=== PATIENT | female | born 1980 | race Hispanic/Latino ===

== ENCOUNTER 2023-10-14 10:57 | Emergency (ER) | payer SELFPAY | END 2023-10-14 12:00 | disposition home or self-care (01) | LOC: CSHERS 10:57 | DX: H91.91 Unspecified hearing loss, right ear (principal); F17.290 Nicotine dependence, other tobacco product, uncomplicated | CPT/HCPCS: 99283 ==

== ENCOUNTER 2023-11-14 18:18 | Emergency (ER) | payer SELFPAY ==
[2023-11-14] MEDS ORDERED: Lidocaine 1% (PF) 30 ML VIAL ONE (18:41)
== END 2023-11-14 19:54 | disposition home or self-care (01) ==
LOC: CSHERS 18:18
DX: S61.211A Laceration without foreign body of left index finger without damage to nail, initial encounter (principal); F17.290 Nicotine dependence, other tobacco product, uncomplicated; W26.9XXA Contact with unspecified sharp object(s), initial encounter; Y92.511 Restaurant or cafe as the place of occurrence of the external cause
CPT/HCPCS: 12001; 99282; J2001

== ENCOUNTER 2024-11-19 16:19 | Emergency (ER) | payer SELFPAY ==
[2024-11-19] MEDS ORDERED: Ibuprofen 200 MG TAB ONE (16:59)
[2024-11-19] MEDS ORDERED: Acetaminophen 325 MG TAB ONE (16:59)
[2024-11-19] MEDS ORDERED: HYDROcodone/Acetaminophen 5/325 mg Tablet ONE (17:50)
== END 2024-11-19 17:41 | disposition home or self-care (01) ==
LOC: CSHERS 16:19
DX: S82.61XA Displaced fracture of lateral malleolus of right fibula, initial encounter for closed fracture (principal); F17.290 Nicotine dependence, other tobacco product, uncomplicated; X50.1XXA Overexertion from prolonged static or awkward postures, initial encounter
CPT/HCPCS: 29515

== ENCOUNTER 2025-09-01 12:29 | Emergency (ER) | payer SELFPAY | END 2025-09-01 14:20 | LOC: CSHERS 12:29 | DX: S61.211A Laceration without foreign body of left index finger without damage to nail, initial encounter (principal); F17.290 Nicotine dependence, other tobacco product, uncomplicated; Z23 Encounter for immunization; W26.0XXA Contact with knife, initial encounter; Y99.0 Civilian activity done for income or pay | CPT/HCPCS: 90471; 90715 ==